=== PATIENT | female | born 1960 | race Caucasian/White ===

== ENCOUNTER → 2016-09-14 | Outpatient (CLI) | payer MEDICAID | LOC: FIMAGING 14:18 | PROVIDERS: ATTEND Family Medicine | DX: M43.12 Spondylolisthesis, cervical region (principal); M50.30 Other cervical disc degeneration, unspecified cervical region ==

== ENCOUNTER → 2016-10-11 | Outpatient (CLI) | payer MEDICAID | LOC: FIMAGING 13:25 | PROVIDERS: ATTEND Family Medicine | DX: M50.322 Other cervical disc degeneration at C5-C6 level (principal); M50.122 Cervical disc disorder at C5-C6 level with radiculopathy; M48.02 Spinal stenosis, cervical region ==